=== PATIENT | male | born 1990 | race African-American/Black ===

== ENCOUNTER 2024-06-29 01:12 | Inpatient (IN) | payer OTHER ==
[2024-06-29] MEDS ORDERED: Morphine 10 MG/ML VIAL ONE (02:52)
[2024-06-29] MEDS ORDERED: Ondansetron PF 4 MG/2 ML Vial ONE (02:52)
[2024-06-29] MEDS ORDERED: diphenhydrAMINE 50 MG/ML VIAL ONE (03:03)
[2024-06-29 03:12] LABS: Hematocrit 22.7 % (42.0-52.0); Hemoglobin 8.1 g/dL (14.0-18.0); Mean Corpuscular HGB CONC 35.7 g/dL (32.0-36.0); Mean Corpuscular Hemoglobin 40.9 pg (27.0-31.0); Mean Corpuscular Volume 114.6 fL (78.0-98.0); Mean Platelet Volume 9.5 fL (7.4-10.4); Platelet Count 238 10x3/uL (130-400); Red Blood Cell (RBC) Count 1.98 mill/uL (4.70-6.10)
[2024-06-29 03:22] LABS: ALT (SGPT) 27 U/L (8-55); AST (SGOT) 27 U/L (5-34); Albumin 4.4 g/dL (3.5-5.0); Alkaline Phosphatase 83 U/L (40-110); Anion Gap 13 mmol/L (10-20); BUN (Urea Nitrogen) 11 mg/dL (8.9-20.6); Bilirubin, Total 0.7 mg/dL (0.2-1.2); Calc. Creatinine Clearance 0 mL/min (70-130); Calcium 9.1 mg/dL (7.8-10.44); Carbon Dioxide 24 mmol/L (22-29); Chloride 106 mmol/L (98-107); Estimated GFR 121; Globulin 3.2 g/dL (2.4-3.5); Glucose 87 mg/dL (70-105); Potassium 3.5 mmol/L (3.5-5.1); Protein, Total 7.7 g/dL (6.0-8.3); Sodium 139 mmol/L (136-145)
[2024-06-29 03:40] LABS: Anisocytosis MODERATE=16-30 cells HPF (0-5); Elliptocytes SLIGHT = 2-5 cells HPF (0-1); Eosinophils 2 % (0-10); Hypochromia SLIGHT = 6-15 cells HPF (0-5); Large Platelets 3.1 % (0-5); Lymphocytes 71 % (21-51); Macrocytosis MODERATE=16-30 cells HPF (0-5); Monocytes 2 % (0-10); Neutrophil 23 % (42-75); Nucleated RBC (Manual Ct) 13 % (0); Platelet Adequacy Comment Platelets Normal; Polychromasia MODERATE = 3-4 cells HPF (0-2); Reactive Lymphocytes 1 % (0-10); Target Cells SLIGHT = 2-5 cells HPF (0-1)
[2024-06-29 03:45] LABS: Bacteria/HPF None Seen HPF (None Seen); Bilirubin Negative (Negative); Blood, Urine Negative (Negative); CAUTI Indications for Culture Immunosuppressed; Clarity Clear (Clear); Glucose, Urine (Dipstick) Normal (Negative); Ketone, Urine Negative (Negative); Leukocyte Negative Leu/uL (Negative); Nitrite Negative (Negative); Protein, Urine (Dipstick) Negative (Neg-Trace); RBC/HPF 0-3 HPF (0-3); Specific Gravity, Urine 1.007 (1.002-1.036); Squamous Epithelial None Seen HPF (0-3); Urobilinogen Normal mg/dL (Less than 2); WBC/HPF 0-3 HPF (0-3)
[2024-06-29 03:59] LABS: Urine Culture Reflex Yes Yes
[2024-06-29 05:11] LABS: Troponin I Less than 0.010 ng/mL (< 0.028)
[2024-06-29] MEDS ORDERED: HYDROmorphone 0.5 MG/0.5 ML SYRINGE ONE (06:06)
[2024-06-29] MEDS ORDERED: Amlodipine 5 MG TAB ONE (06:06)
[2024-06-29] MEDS ORDERED: Acetaminophen 325 MG TAB PO PRN (08:42)
[2024-06-29] MEDS ORDERED: Morphine 4 MG/ML VIAL SLOW IVP PRN (08:42)
[2024-06-29] MEDS ORDERED: Lisinopril 10 MG TAB PO SCH (09:00)
[2024-06-29] MEDS ORDERED: Non-Formulary Item 1 EACH (Sertraline Hcl [Sertraline Hcl] 50 MG Tablet) PO SCH (09:00)
[2024-06-29] MEDS ORDERED: Famotidine 20 MG TAB PO SCH (09:00)
[2024-06-29] MEDS ORDERED: HYDROmorphone 1 MG/ML SYRINGE SLOW IVP PRN (10:26)
[2024-06-29] MEDS: HYDROcodone/Acetaminophen 10/325 mg Tablet PO PRN (11:00)
[2024-06-29] MEDS: Lisinopril 20 MG TAB PO SCH (11:01)
[2024-06-29] MEDS: Sertraline 25 MG TAB PO SCH (11:02)
[2024-06-29] MEDS: Aspirin 81 mg Enteric Coated Tablet PO SCH (11:02)
[2024-06-29] MEDS: Docusate 100 MG CAP PO SCH (11:02)
[2024-06-29] MEDS: Apixaban 5 MG TAB PO SCH (11:02)
[2024-06-29] MEDS: Famotidine 20 MG TAB PO SCH (11:02)
[2024-06-29] MEDS: Amlodipine 10 MG TAB PO SCH (11:02)
[2024-06-29 11:09] VITALS: BMI 28.7
[2024-06-29] MEDS: diphenhydrAMINE 50 MG/ML VIAL IVP PRN (12:05)
[2024-06-29] MEDS: Morphine 4 MG/ML VIAL SLOW IVP PRN (12:05)
[2024-06-29] MEDS: Hydroxyurea 500 MG CAP PO SCH (14:13)
[2024-06-30 05:31] LABS: Anion Gap 12 mmol/L (10-20); BUN (Urea Nitrogen) 14 mg/dL (8.9-20.6); Calc. Creatinine Clearance 174 mL/min (70-130); Calcium 8.8 mg/dL (7.8-10.44); Carbon Dioxide 25 mmol/L (22-29); Chloride 107 mmol/L (98-107); Estimated GFR 122; Glucose 90 mg/dL (70-105); Potassium 4.1 mmol/L (3.5-5.1); Sodium 140 mmol/L (136-145)
[2024-06-30 06:13] LABS: Anisocytosis SLIGHT = 6-15 cells HPF (0-5); Eosinophils 2 % (0-10); Hypochromia SLIGHT = 6-15 cells HPF (0-5); Lymphocytes 56 % (21-51); Macrocytosis MODERATE=16-30 cells HPF (0-5); Monocytes 2 % (0-10); Neutrophil 36 % (42-75); Nucleated RBC (Manual Ct) 10 % (0); Platelet Adequacy Comment Platelets Normal; Polychromasia MODERATE = 3-4 cells HPF (0-2); Reactive Lymphocytes 1 % (0-10); Target Cells SLIGHT = 2-5 cells HPF (0-1)
[2024-06-30 06:28] LABS: #Basophils 0.03 10x3/uL (0.0-0.2); %Basophils 0.7 % (0.0-1.0); %Eosinophils 0.7 % (0.0-10.0); %Lymphocytes 60.3 % (21.0-51.0); %Monocytes 6.7 % (0.0-10.0); %Neutrophils 31.4 % (42.0-75.0); Hematocrit 21.9 % (42.0-52.0); Hemoglobin 7.9 g/dL (14.0-18.0); Mean Corpuscular HGB CONC 36.1 g/dL (32.0-36.0); Mean Corpuscular Hemoglobin 41.4 pg (27.0-31.0); Mean Corpuscular Volume 114.7 fL (78.0-98.0); Mean Platelet Volume 9.1 fL (7.4-10.4); Platelet Count 169 10x3/uL (130-400); Red Blood Cell (RBC) Count 1.91 mill/uL (4.70-6.10)
[2024-06-30] MEDS ORDERED: Bisacodyl 10 MG SUPP PR PRN (08:36)
[2024-06-30] MEDS: Polyethylene Glycol 3350 17 GM Packet PO SCH (10:25)
[2024-06-30] MEDS ORDERED: HYDROmorphone 0.5 MG/0.5 ML SYRINGE SLOW IVP SCH (12:30)
[2024-06-30] MEDS: Lactated Ringer's 1,000 ML IV SCH (13:46)
[2024-06-30] MEDS: HYDROmorphone 0.5 MG/0.5 ML SYRINGE SLOW IVP SCH (13:48)
[2024-06-30] MEDS: HYDROmorphone 2 MG TAB PO PRN (15:48)
[2024-06-30] MEDS: Ketorolac Tromethamine 30 MG (1 mL) VIAL IVP SCH (17:55)
[2024-06-30] MEDS: hydrOXYzine 10 MG TAB PO PRN (21:24)
[2024-07-01] MEDS: SUMAtriptan Succinate 50 MG TAB PO SCH (01:35)
[2024-07-01 06:11] LABS: Anion Gap 12 mmol/L (10-20); BUN (Urea Nitrogen) 11 mg/dL (8.9-20.6); Calc. Creatinine Clearance 179 mL/min (70-130); Calcium 8.7 mg/dL (7.8-10.44); Carbon Dioxide 26 mmol/L (22-29); Chloride 106 mmol/L (98-107); Estimated GFR 122; Glucose 112 mg/dL (70-105); Potassium 3.8 mmol/L (3.5-5.1); Sodium 140 mmol/L (136-145)
[2024-07-01 06:13] LABS: Hematocrit 20.2 % (42.0-52.0); Hemoglobin 7.4 g/dL (14.0-18.0); Mean Corpuscular HGB CONC 36.6 g/dL (32.0-36.0); Mean Corpuscular Hemoglobin 40.9 pg (27.0-31.0); Mean Corpuscular Volume 111.6 fL (78.0-98.0); Platelet Count 133 10x3/uL (130-400); Red Blood Cell (RBC) Count 1.81 mill/uL (4.70-6.10)
[2024-07-01 06:49] LABS: Elliptocytes SLIGHT = 2-5 cells HPF (0-1); Hypochromia SLIGHT = 6-15 cells HPF (0-5); Lymphocytes 75 % (21-51); Macrocytosis SLIGHT = 6-15 cells HPF (0-5); Monocytes 2 % (0-10); Neutrophil 24 % (42-75); Nucleated RBC (Manual Ct) 9 % (0); Platelet Adequacy Comment Platelets Normal; Polychromasia SLIGHT = 2-3 cells HPF (0-2); Stomatocytes SLIGHT = 2-5 cells HPF (0-1); Target Cells SLIGHT = 2-5 cells HPF (0-1)
[2024-07-01] MEDS: FLU (Fluarix Triv) TS24-25(6MOS UP)/PF 45 MCG/0.5 ML Syringe IM ONE (08:43)
[2024-07-01] MEDS: Dexamethasone 4 mg/ml Vial SLOW IVP SCH (11:47)
[2024-07-01] MEDS: Polyethylene Glycol 3350 17 GM Packet PO PRN (20:39)
[2024-07-02 00:01] VITALS: TEMP 98.2
[2024-07-02 08:43] VITALS: BP 162/92
== END 2024-07-02 14:17 | DRG 812 ==
LOC: ERS 01:12 → SUATTDRO 01:12 → EEVIPCON 01:12 → T4-A 07:23 → OBSVTOIN 07-01 16:11
PROVIDERS: ADMIT Internal Medicine; ATTEND Hospitalist
DX: D57.00 Hb-SS disease with crisis, unspecified (principal); J98.11 Atelectasis; I10 Essential (primary) hypertension; K21.9 Gastro-esophageal reflux disease without esophagitis; Z88.8 Allergy status to other drugs, medicaments and biological substances; Z79.899 Other long term (current) drug therapy; Z86.711 Personal history of pulmonary embolism; Z79.82 Long term (current) use of aspirin; M51.26 Other intervertebral disc displacement, lumbar region
CPT/HCPCS: 36415; 71045; 72146; 72148; 72192; 80048; 80053; 81001; 84484; 85025; 85046; 85379; 86850; 86900; 86901; 87086; 93005; 94760; 96361; 96374; 96375; 96376; G0378; J1100; J1200; J1885; J2270; J2272; J2405; J7120